=== PATIENT | male | born 1985 | race Two or more races ===

== ENCOUNTER 2018-04-08 03:29 | Emergency (ER) | payer OTHER ==
[~2018-04-08] VITALS: Ht 172.7 cm; Wt 74.8 kg
--- NOTE | 2018-04-08 03:35 | NUR ---
PT TO ER BED 11. BIBRA FROM HOME C/O N/V FROM "SMOKING WEED". PT PLACED IN GOWN AND ON DESIGN MANAGER. VSS/RESP EVEN UNLABORED/NAD NOTED/SKIN WARM AND DRY/AFEBRILE/AOX4. AWAITING MD COOPER.
[2018-04-08] MEDS ORDERED: HALOPERIDOL LACTATE INJ 5 MG/ML VIAL ONE (03:49)
[2018-04-08] MEDS ORDERED: HALOPERIDOL LACTATE INJ 5 MG/ML VIAL IM ONE (04:00)
--- NOTE | 2018-04-08 04:00 | NUR ---
MEDICATED PER MD ORDERS.
[2018-04-08] MEDS ORDERED: METOCLOPRAMIDE HCL 10 MG/2 ML VIAL ONE (05:16)
--- NOTE | 2018-04-08 05:20 | NUR ---
VO ORDER PER DR MALONE, REGLAN 10MG IM R DELTOID.
[2018-04-08] MEDS ORDERED: ONDANSETRON HCL/PF 4 MG/2 ML VIAL ONE (05:58)
[2018-04-08] MEDS ORDERED: METOCLOPRAMIDE HCL 10 MG/2 ML VIAL IM ONE (06:00)
[2018-04-08] MEDS ORDERED: ONDANSETRON HCL/PF 4 MG/2 ML VIAL IVP ONE (06:00)
[2018-04-08] MEDS ORDERED: IV NS 0.9% 1,000 ML BAG IV ONE (06:00)
--- NOTE | 2018-04-08 06:00 | NUR ---
PT REFUSED IV AND IV FLUIDS, MADE AWARE. NO NEW ORDERS RECEIVED.
[2018-04-08 06:21] VITALS: BP 127/82
--- NOTE | 2018-04-08 06:21 | NUR ---
Patient discharged to home in stable condition. Written and verbal after care instructions given. Patient verbalizes understanding of instruction. Patient ambulatory with a steady gait.
== END 2018-04-08 06:22 | disposition home or self-care (01) ==
LOC: ER 03:30
DX: G43.A0 Cyclical vomiting, in migraine, not intractable (principal); F12.90 Cannabis use, unspecified, uncomplicated
CPT/HCPCS: A4606; J1630; J2405; J2765; J7030; Z7610